=== PATIENT | female | born 1955 | race Caucasian/White ===

== ENCOUNTER → 2016-11-16 | Day surgery (SDC) | payer MEDICARE, OTHER ==
[~2016-11-16] MED LIST: ACETAMINOPHEN 325 MG TAB PO ONE; ANAS1TAB5 PO; BACTDS PO; DIPHENHYDRAMINE 25 MG CAP PO ONE
[2016-11-16 13:45] LABS: INR 0.87; PROTIME 11.8 Sec (12.2-14.2); PT RATIO 0.9
[2016-11-16 13:49] LABS: D-DIMER 533.85 ng/ml (<460)
[2016-11-16 14:09] VITALS: BP 104/59; PULSE 78; RESP 16
[2016-11-16 15:46] LABS: PARTIAL THROMBOPLASTIN TIME 20.4 Sec (25.0-35.0)
[2016-11-20 01:17] LABS: PLATELET ANTIBODY - IGA NEGATIVE (NEGATIVE); PLATELET ANTIBODY - IGG NEGATIVE (NEGATIVE); PLATELET ANTIBODY - IGM NEGATIVE (NEGATIVE)
== END | disposition home or self-care (01) ==
LOC: SDS 09:44
PROVIDERS: ATTEND Internal Medicine Hematology & Oncology
DX: D69.6 Thrombocytopenia, unspecified (principal)
CPT/HCPCS: 36430; 85378; 85384; 85610; 85730; 86022; 86644; 86850; 86900; 86901; 86945; P9035

== ENCOUNTER 2016-12-06 08:45 | Observation (INO) | payer MEDICARE, OTHER ==
[2016-11-30 12:15] VITALS: BMI 19.2
[~2016-12-06] VITALS: Ht 154.9 cm; Wt 45.3 kg
[2016-12-06] VITALS (16 sets, daily range): BP systolic 99–138; BP diastolic 56–77; PULSE 81–98; RESP 16–20; Ht 154.9 cm; Wt 45.3 kg
[~2016-12-06 08:45] MED LIST changes: -ACETAMINOPHEN 325 MG TAB PO ONE; -DIPHENHYDRAMINE 25 MG CAP PO ONE; +SOD CHLORIDE 0.9% 1,000 ML IV SCH
[2016-12-06] MEDS ORDERED: SOD CHLORIDE 0.9% 1,000 ML IV SCH (09:00)
--- NOTE | 2016-12-06 09:55 | RADRPT ---
PROCEDURE: XR Chest. CLINICAL INDICATION: Preoperative, hernia TECHNIQUE: Single frontal view of the chest was obtained COMPARISON: 04/09/2013 FINDINGS: The heart and mediastinum are within normal limits. The lungs are clear. There are surgical clips in the right axilla. There is no pleural effusion or pneumothorax. RPTAT: AA IMPRESSION: No acute disease. .Norman Skinner MD, MD Date Time Electronically viewed and signed by .Norman Skinner MD, on 12/06/2016 09:55 .S/
[2016-12-06 10:04] LABS: ADD SCAN DIFF NO
[2016-12-06 10:08] LABS: BASOPHILS % 0.5 % (0.0-2.0); EOSINOPHILS # 0.1 10^3/ul (0.0-0.5); EOSINOPHILS % 3.3 % (0.0-7.0); HEMOGLOBIN 13.5 g/dl (12.0-16.0); LYMPHOCYTES # 1.6 10^3/ul (0.8-2.9); LYMPHOCYTES % 37.3 % (15.0-51.0); MEAN CORPUSCULAR HEMOGLOBIN 31.6 pg (29.0-33.0); MEAN CORPUSCULAR HGB CONC 32.9 g/dl (32.0-37.0); MEAN PLATELET VOLUME 9.7 fl (7.4-10.4); MONOCYTE # 0.3 10^3/ul (0.3-0.9); MONOCYTES % 7.4 % (0.0-11.0); NEUTROPHIL # 2.2 10^3/ul (1.6-7.5); NEUTROPHILS % 51.3 % (39.0-77.0); PLATELET COUNT 178 10^3/UL (140-415); RED BLOOD COUNT 4.27 10^6/ul (4.20-5.40); RED CELL DISTRIBUTION WIDTH 14.6 % (11.5-14.5); WHITE BLOOD COUNT 4.2 10^3/ul (4.8-10.8)
[2016-12-06 10:30] LABS: INR 0.9; PROTIME 12.1 Sec (12.2-14.2); PT RATIO 0.9
[2016-12-06 10:31] LABS: ALBUMIN 3.8 g/dl (3.3-4.9); PARTIAL THROMBOPLASTIN TIME 29.8 Sec (25.0-35.0)
[2016-12-06 10:33] LABS: POTASSIUM 4.3 mmol/L (3.5-5.1)
[2016-12-06 10:34] LABS: ALBUMIN/GLOBULIN RATIO 1.4; BILIRUBIN,INDIRECT 1.2 mg/dl (0-1.1); BILIRUBIN,TOTAL 1.2 mg/dl (0.2-1.3); TOTAL PROTEIN 6.5 g/dl (6.1-8.1)
[2016-12-06 10:36] LABS: CALCIUM 9.1 mg/dl (8.4-10.2); CREATININE 0.75 mg/dl (0.44-1.00)
[2016-12-06] MEDS ORDERED: ROCURONIUM 50 MG INJ ONE (11:12)
[2016-12-06] MEDS ORDERED: PROPOFOL 20 ML ONE (11:12)
[2016-12-06] MEDS ORDERED: FENTAnyl 50 MCG/ML VIAL ONE (11:12)
[2016-12-06] MEDS ORDERED: LIDOCAINE 1% (MDV) 20 ML INJ ONE (11:13)
[2016-12-06] MEDS ORDERED: MIDAZOLAM 1 MG/ML 2 ML INJ ONE (11:13)
[2016-12-06] MEDS ORDERED: CEFAZOLIN 1 GM INJ ONE (11:32)
[2016-12-06] MEDS ORDERED: POLYMYXIN/BACITRACIN 1L IRRIG ONE (11:37)
[2016-12-06] MEDS ORDERED: FAMOTIDINE 20 MG INJ ONE (11:38)
[2016-12-06] MEDS ORDERED: ONDANSETRON 4 MG INJ ONE (11:38)
[2016-12-06] MEDS ORDERED: DEXAMETHASONE 4 MG/ML 1 ML INJ ONE (11:38)
[2016-12-06] MEDS ORDERED: BUPIVACAINE 0.5%/EPI (SDV) 30 ML INJ ONE (11:57)
[2016-12-06] MEDS ORDERED: NEOSTIGMINE 3 MG/3 ML SYRINGE ONE (12:07)
[2016-12-06] MEDS ORDERED: GLYCOPYRROLATE 0.4 MG INJ ONE (12:07)
[2016-12-06] MEDS ORDERED: KETOROLAC 30 MG INJ IV ONE (12:30)
[2016-12-06] MEDS ORDERED: MEPERIDINE 25 MG INJ IV PRN (12:30)
[2016-12-06] MEDS ORDERED: ONDANSETRON 4 MG INJ IV PRN ×2 (12:30→13:00)
[2016-12-06] MEDS ORDERED: HYDROmorphONE (0.2 MG/ML) 10ML SYG IV PRN ×2 (12:30)
[2016-12-06] MEDS ORDERED: DIPHENHYDRAMINE 50 MG INJ IV PRN (12:30)
[2016-12-06] MEDS ORDERED: D5W-0.45 NACL + KCL 20 MEQ 1,000 ML IV SCH (12:33)
--- NOTE | 2016-12-06 12:54 | OPR ---
DATE OF OPERATION: 12/06/2016 PREOPERATIVE DIAGNOSIS: Incarcerated left inguinal hernia. POSTOPERATIVE DIAGNOSIS: Incarcerated left inguinal hernia. OPERATION PERFORMED: Left inguinal herniorrhaphy. SURGEON: Carmen Navarro MD OYSTER GROWER: None. ANESTHESIA: General. ANESTHESIOLOGIST: Eusebio Beaulieu MD INDICATIONS FOR PROCEDURE: The patient is a 61-year-old female who is previously known to me. I pr eviously treated her for breast cancer. She presented with bilateral inguinal hernias confirmed on ultrasound. She requested staged repair. The left side was the most symptomatic side, so she was c ounseled as to the risks versus benefits of repair of the left inguinal hernia. She consented and w as scheduled for surgery. DESCRIPTION OF PROCEDURE: The patient was brought to the operating theater, placed under general en dotracheal tube anesthesia. The left groin was shaved, prepped and draped in usual sterile fashion. An approximately 4 cm incision was made in the left groin transversing the approximate locations o f the internal and external inguinal rings. Subcutaneous tissue was dissected with cautery down to the aponeurosis of the external oblique. The aponeurosis was incised in the direction of the fibers through the external ring. With blunt dissection, medial and lateral flaps were developed allowing exposure of the inguinal canal. The round ligament with associated hernia sac and lipoma was then elevated off the pubic tubercle. The round ligament was clamped distally. The hernia sac was disse cted down to its base and under anesthesia, the hernia was able to be reduced. The sac and the prox imal portion of the cord were then clamped, transected and ligated with a 3-0 Vicryl ligature as was the distal end portion of the sac and round ligament was then sent for permanent pathologic analysi s. The lipoma associated with the round ligament was then resected separately and sent for patholog ic analysis. The wound was irrigated. There was no evidence of bleeding. Dr. Navarro made the decision that it wo uld not be prudent to reinforce the floor with mesh as there was no evidence of a direct component. An ilioinguinal and iliohypogastric nerve block was then performed with 0.5% Marcaine local anesthe tic with epinephrine. The aponeurosis of the external oblique was closed with a 3-0 Vicryl suture i n running fashion and additional anesthetic was then injected into the skin. This concluded the pro cedure. Benzoin and Steri-Strips were then applied. The patient tolerated the procedure well. The estimated blood loss was 10 mL. There were no complications and the patient was transported in stab le condition to the recovery room. Dictated By: CARMEN BUCKLEY/KYLER Conf#: [id number] DID#: [id number]
[2016-12-06] MEDS ORDERED: morphine 2 MG INJ IV PRN (13:00)
--- NOTE | 2016-12-06 18:38 | PDOCDIS ---
Discharge Instructions CONDITION Patient Condition: Good HOME CARE INSTRUCTIONS: Diet Instructions: RegularSpecial Diet: NPO ACTIVITY: Activity Restrictions: Slowly Increase Activity Rest between Activity Avoid heavy lifting Bathing Restrictions: Sponge Bath FOLLOW UP/APPOINTMENTS Appointments MD BA, CALL OFFICE FOR JANI PIERCE MD December 06, 2016 18:37
--- NOTE | 2016-12-07 16:39 | RADRPT ---
Vent Rate: 75 bpm RR Interval: 0 msec VT Interval: 188 msec QRS Duration: 60 msec QT Interval: 390 msec QTC Interval: 435 msec P-R-T Rupert: 81 - 78 - 81 degrees Normal sinus rhythm Normal ECG Electronically Signed By: Lui Kaur [id number]
== END 2016-12-06 19:10 | disposition home or self-care (01) ==
LOC: SDS 08:45 → PP2 12:34
PROVIDERS: ADMIT Surgery Surgical Oncology; ATTEND Surgery Surgical Oncology
DX: K40.30 Unilateral inguinal hernia, with obstruction, without gangrene, not specified as recurrent (principal); D17.79 Benign lipomatous neoplasm of other sites; Z88.1 Allergy status to other antibiotic agents; Z85.3 Personal history of malignant neoplasm of breast
CPT/HCPCS: 49507; 71010; 80053; 85025; 85610; 85730; 88302; 88304; 93005; G0378; J0690; J1100; J2250; J2405; J2710; J3010

== ENCOUNTER 2017-09-03 12:23 | Day surgery (SDC) | END 2017-09-03 16:26 | disposition home or self-care (01) ==

== ENCOUNTER 2017-12-02 13:03 | Emergency (ER) | END 2017-12-02 17:51 | disposition home or self-care (01) ==